=== PATIENT | female | born 1980 | race African-American/Black ===

== ENCOUNTER 2019-11-20 20:45 | Emergency (ER) | payer SELFPAY ==
[~2019-11-20] VITALS: Ht 162.6 cm; Wt 82.7 kg
[2019-11-20 21:18] VITALS: Ht 162.6 cm; Wt 82.7 kg
[2019-11-21 02:12] VITALS: BP 131/71
== END 2019-11-21 07:26 | disposition home or self-care (01) ==
LOC: ED 20:45
DX: G43.909 Migraine, unspecified, not intractable, without status migrainosus (principal); M25.511 Pain in right shoulder; M25.512 Pain in left shoulder